=== PATIENT | male | born 1965 | race Caucasian/White ===

== ENCOUNTER → 2022-09-10 | Outpatient (CLI) | payer OTHER ==
[~2022-09-10] MED LIST: DOXYCYCLINE50 M2 PO; HYDR25T PO; INSULIN AS100 UNIT/3 SQ; K-TAB20 MEQ PO; LASIX40 MG PO; TRADJENTA5 M1 PO; TYLENOL EXTRA500 MG PO; XARELTO10 MG PO; ZOLOFT50 MG PO
== END | disposition home or self-care (01) ==
LOC: MRI 12:58
PROVIDERS: ATTEND Podiatrist
DX: M76.62 Achilles tendinitis, left leg (principal); M65.872 Other synovitis and tenosynovitis, left ankle and foot; M76.829 Posterior tibial tendinitis, unspecified leg

== ENCOUNTER 2023-10-18 09:25 | Emergency (ER) | payer OTHER, MEDICAID ==
[~2023-10-18] VITALS: Ht 175.2 cm; Wt 156.0 kg
[2023-10-18] MEDS ORDERED: ACETAMINOPHEN 325 MG TAB PO ONE (09:45)
[2023-10-18] MEDS ORDERED: Tdap Vaccine 0.5 ML SYR (Adult Vaccine) IM ONE (09:45)
[2023-10-18] MEDS ORDERED: CEPHALEXIN500 M1 PO (10:59)
== END 2023-10-18 11:37 | disposition home or self-care (01) ==
LOC: ED 09:25
DX: S61.012A Laceration without foreign body of left thumb without damage to nail, initial encounter (principal); I50.9 Heart failure, unspecified; E11.9 Type 2 diabetes mellitus without complications; F41.9 Anxiety disorder, unspecified; F32.A Depression, unspecified; J44.9 Chronic obstructive pulmonary disease, unspecified; Z88.8 Allergy status to other drugs, medicaments and biological substances; Z88.0 Allergy status to penicillin; Z98.890 Other specified postprocedural states; W27.0XXA Contact with workbench tool, initial encounter; Y93.89 Activity, other specified; Y92.009 Unspecified place in unspecified non-institutional (private) residence as the place of occurrence of the external cause; Y99.8 Other external cause status

== ENCOUNTER 2024-08-15 15:45 | Emergency (ER) | payer MEDICARE ==
[~2024-08-15] VITALS: Ht 167.6 cm; Wt 141.5 kg
[~2024-08-15 15:45] MED LIST changes: +ALBUTEROL S5 MG/1 ML INH; +ASPIRIN CHEWABL81 MG PO; +CEPHALEXIN500 M1 PO; +HUMULIN R100 UNIT/1 SC; +HYDROCHLOROTHIA50 M1 PO; +LANTUS SOL100 UNIT/1 SC
== END 2024-08-15 18:31 | disposition home or self-care (01) ==
LOC: ED 15:45
DX: R20.0 Anesthesia of skin (principal); E11.9 Type 2 diabetes mellitus without complications; M79.604 Pain in right leg; F17.200 Nicotine dependence, unspecified, uncomplicated; Z79.01 Long term (current) use of anticoagulants; Z88.8 Allergy status to other drugs, medicaments and biological substances; Z88.0 Allergy status to penicillin; Z88.1 Allergy status to other antibiotic agents; Z79.4 Long term (current) use of insulin; Z79.82 Long term (current) use of aspirin; Z79.84 Long term (current) use of oral hypoglycemic drugs; Z79.899 Other long term (current) drug therapy; Z98.890 Other specified postprocedural states

== ENCOUNTER 2024-12-07 11:07 | Emergency (ER) | payer MEDICARE ==
[~2024-12-07] VITALS: Ht 177.8 cm; Wt 142.9 kg
[~2024-12-07 11:07] MED LIST changes: +ADMELOG100 UNIT/1 SQ; -ALBUTEROL S5 MG/1 ML INH; +ALDACTONE25 M1 PO; +BUMETANIDE1 MG PO; +ENTRESTO 24 MG1 EACH PO; +INSULIN GL300 UNIT/1 SQ; +Ipratropium Brom3 ML INH; +LANTUS100 UNIT/1 SC; +LOPRESSOR25 MG PO; +PRAVASTATIN SOD40 MG PO; +VENTOLIN 02.5 MG/3 M INH; +VIAGRA50 MG PO; +WARFARIN SOD5 MG PO; +ZOLOFT100 MG PO
[2024-12-07] MEDS ORDERED: SILDENAFIL CITR50 MG PO (11:43)
[2024-12-07] MEDS ORDERED: METOPROLOL SUCC25 M2 PO (11:44)
[2024-12-07] MEDS ORDERED: ENTRESTO 24 MG1 EACH PO (11:45)
[2024-12-07] MEDS ORDERED: DICYCLOMINE HYD10 MG PO (11:48)
[2024-12-07] MEDS ORDERED: Albuterol Sulf/Ipratropium 3 ML VIAL NEB ONE (11:50)
[2024-12-07] MEDS ORDERED: JARDIANCE10 MG PO (11:50)
[2024-12-07] MEDS ORDERED: IPRATROPIU0.2 MG/1 M NEB (11:52)
[2024-12-07 12:08] LABS: BASO # 0.1 10*3/uL (0.0-0.1); BASO % 1.1 % (0.0-1.0); EOS # 0.1 10*3/uL (0.0-0.4); EOS % 1.6 % (1.0-4.0); MEAN CELL VOLUME 88.4 fl (80.0-94.0); MEAN CORPUSCULAR HGB 26.2 pg (27.0-31.0); MEAN PLATELET VOLUME 10.3 fl (9.6-12.3); MONO # 0.8 10*3/uL (0.1-1.0); MONO % 10.7 % (3.0-9.0); NEUT # 5.0 10*3/uL (2.3-7.9); NEUT % 67.4 % (47.0-73.0); NUCLEATED RED BLOOD CELL 0.0 % (0.0-0.0); NUCLEATED RED BLOOD CELL 0.0 10*3/uL (0.0-0.0); PLATELET COUNT AUTOMATED 154 10*3/uL (130-400); RED CELL DISTRI WIDTH 18.1 % (0-14.5)
[2024-12-07 12:29] LABS: BUN 20 mg/dl (9-23)
[2024-12-07] MEDS ORDERED: PREDNISONE20 M1 PO (16:31)
[2024-12-07] MEDS ORDERED: VIBRAMYCIN100 MG PO (16:31)
== END 2024-12-07 16:51 | disposition home or self-care (01) ==
LOC: ED 11:07
PROVIDERS: Emergency Medicine
DX: J44.9 Chronic obstructive pulmonary disease, unspecified (principal); I48.91 Unspecified atrial fibrillation; F17.210 Nicotine dependence, cigarettes, uncomplicated; Z88.8 Allergy status to other drugs, medicaments and biological substances; Z88.1 Allergy status to other antibiotic agents; Z88.0 Allergy status to penicillin; Z79.899 Other long term (current) drug therapy; Z79.01 Long term (current) use of anticoagulants; Z79.82 Long term (current) use of aspirin; Z79.4 Long term (current) use of insulin; Z79.84 Long term (current) use of oral hypoglycemic drugs; Z98.890 Other specified postprocedural states

== ENCOUNTER → 2024-12-13 | Outpatient (CLI) | payer MEDICARE ==
[~2024-12-13] MED LIST changes: +DICYCLOMINE HYD10 MG PO; +IPRATROPIU0.2 MG/1 M NEB; +JARDIANCE10 MG PO; +METOPROLOL SUCC25 M2 PO; +PREDNISONE20 M1 PO; +SILDENAFIL CITR50 MG PO; +VIBRAMYCIN100 MG PO
== END | disposition home or self-care (01) ==
LOC: WOUNDCARE 01:57
PROVIDERS: ATTEND Nurse Practitioner Family
DX: E11.622 Type 2 diabetes mellitus with other skin ulcer (principal); I83.018 Varicose veins of right lower extremity with ulcer other part of lower leg; L97.812 Non-pressure chronic ulcer of other part of right lower leg with fat layer exposed; F17.210 Nicotine dependence, cigarettes, uncomplicated; Z95.4 Presence of other heart-valve replacement

== ENCOUNTER → 2024-12-20 | Outpatient (CLI) | payer MEDICARE | END | disposition home or self-care (01) | LOC: WOUNDCARE 01:28 | PROVIDERS: ATTEND Nurse Practitioner Family | DX: E11.622 Type 2 diabetes mellitus with other skin ulcer (principal); I83.018 Varicose veins of right lower extremity with ulcer other part of lower leg; L97.812 Non-pressure chronic ulcer of other part of right lower leg with fat layer exposed; I10 Essential (primary) hypertension; F17.210 Nicotine dependence, cigarettes, uncomplicated; Z95.4 Presence of other heart-valve replacement ==

== ENCOUNTER 2025-03-10 15:54 | Emergency (ER) | payer MEDICARE ==
[~2025-03-10] VITALS: Ht 167.6 cm; Wt 158.8 kg
== END 2025-03-10 17:55 | disposition home or self-care (01) ==
LOC: ED 15:54
DX: S40.011A Contusion of right shoulder, initial encounter (principal); J44.9 Chronic obstructive pulmonary disease, unspecified; E11.9 Type 2 diabetes mellitus without complications; F41.9 Anxiety disorder, unspecified; F32.A Depression, unspecified; I50.9 Heart failure, unspecified; F17.210 Nicotine dependence, cigarettes, uncomplicated; Z88.0 Allergy status to penicillin; Z88.8 Allergy status to other drugs, medicaments and biological substances; W00.0XXA Fall on same level due to ice and snow, initial encounter; Y93.89 Activity, other specified; Y92.89 Other specified places as the place of occurrence of the external cause; Y99.8 Other external cause status

== ENCOUNTER 2025-03-18 14:15 | Emergency (ER) | payer MEDICARE ==
[2025-03-18] MEDS ORDERED: Amiodarone Hydrochloride 900 MG in DEXTROSE 5% 500 ML IV SCH (14:25)
[2025-03-18] MEDS ORDERED: SODIUM CHLORIDE 0.9% 1,000 ML IV ONE (15:00)
[2025-03-18] MEDS ORDERED: PROPOFOL 50 ML IV SCH (15:05)
[2025-03-18] MEDS ORDERED: Oxymetazoline Hydrochloride Nasal 15 ml bottle NAS ONE (15:15)
[2025-03-18] MEDS ORDERED: PROPOFOL 100 ML IV ONE ×2 (15:27→18:55)
[2025-03-18 15:28] LABS: MEAN CELL VOLUME 96.8 fl (80.0-94.0); MEAN CORPUSCULAR HGB 28.5 pg (27.0-31.0); MEAN PLATELET VOLUME 10.9 fl (9.6-12.3); NUCLEATED RED BLOOD CELL 0.0 10*3/uL (0.0-0.0); NUCLEATED RED BLOOD CELL 0.2 % (0.0-0.0); PLATELET COUNT AUTOMATED 276 10*3/uL (130-400); RED CELL DISTRI WIDTH 18.2 % (0-14.5)
[2025-03-18 15:36] LABS: MANUAL DIFF REFLEX YES
[2025-03-18 15:51] LABS: ACT PARTIAL THROMBO TIME 47.3 SECONDS (20.0-32.1); PLATELET SUFFICIENCY NORMAL (NORMAL)
[2025-03-18 16:04] LABS: BUN 102.0 mg/dl (9-23); SGPT/ALT 48.0 U/L (5-49)
[2025-03-18 16:14] LABS: CPK 1336.0 U/L (34-171)
[2025-03-18] MEDS ORDERED: NOREPINEPHRINE BITARTRATE/D5W 250 ML IV SCH (16:15)
[2025-03-18] MEDS ORDERED: fentaNYL CITRATE 1,000 MCG in SODIUM CHLORIDE 0.9% 230 ML IV SCH (16:15)
[2025-03-18] MEDS ORDERED: IOHEXOL 350 MG/ML 100 ML VIAL IV ONE (16:20)
[2025-03-18] MEDS ORDERED: SODIUM CHLORIDE 0.9% 100 ML BAG IV ONE (16:20)
[2025-03-18] MEDS ORDERED: Iodixanol 320 100 ML VIAL IV ONE (16:20)
[2025-03-18] MEDS ORDERED: Iodixanol 320 100 ML VIAL ONE (16:44)
[2025-03-18] MEDS ORDERED: SODIUM CHLORIDE 0.9% 100 ML IV ONE (16:44)
[2025-03-18 17:03] LABS: ABG O2 SATURATION 97.3 % (94.0-98.0); ARTERIAL BLOOD GAS PO2 81.5 mmHg (83.0-108.0)
[2025-03-18 17:05] LABS: ABG BASE EXCESS -10.1 mmol/L (-2.0-3.0)
[2025-03-18 17:06] LABS: ARTERIAL BLOOD GAS PH 7.103 (7.350-7.450)
[2025-03-21] MEDS ORDERED: SODIUM BICARBONATE 50 MEQ/50 ML SYR IV ONE (09:33)
[2025-03-21] MEDS ORDERED: ATROPINE SULFATE 1 MG/10 ML SYR IV ONE (09:33)
[2025-03-21] MEDS ORDERED: EPINEPHrine Hydrochloride 1 MG/10 ML SYR IV ONE (09:33)
[2025-03-21] MEDS ORDERED: Amiodarone Hydrochloride 150 MG/3 ML VIAL IV ONE (09:33)
[2025-03-21] MEDS ORDERED: CALCIUM CHLORIDE 1 GM/10 ML SYR IV ONE (09:33)
[2025-03-21] MEDS ORDERED: MAGNESIUM SULFATE 2 GM/50 ML IVB IV ONE (09:33)
== END 2025-03-18 18:50 | disposition short-term general hospital (02) ==
LOC: ED 14:15
PROVIDERS: Emergency Medicine
DX: I46.9 Cardiac arrest, cause unspecified (principal); J44.9 Chronic obstructive pulmonary disease, unspecified; E11.9 Type 2 diabetes mellitus without complications; I50.9 Heart failure, unspecified; F41.9 Anxiety disorder, unspecified; F32.A Depression, unspecified; F17.210 Nicotine dependence, cigarettes, uncomplicated; Z98.890 Other specified postprocedural states; Z88.0 Allergy status to penicillin; Z88.8 Allergy status to other drugs, medicaments and biological substances